=== PATIENT | male | born 1955 | race Caucasian/White ===

== ENCOUNTER 2024-11-28 15:23 | Day surgery (SDC) | payer OTHER ==
[~2024-11-28] VITALS: Ht 175.3 cm; Wt 75.9 kg
[2024-11-28] VITALS (9 sets, daily range): BP systolic 111–127; BP diastolic 66–77; PULSE 62–92; RESP 10–18; TEMP 96.8; O2SAT 96–100
[2024-11-28] MEDS ORDERED: bacitracin 15gm ointment TP ONE (15:31)
[2024-11-28] MEDS: famotidine 20mg tablet PO ONE (16:01)
[2024-11-28] MEDS ORDERED: cefazolin 2gm/D5W 100mL 100 ML IV ONE (16:05)
[2024-11-28] MEDS: ringers solution, lacted 1,000 ML IV SCH (16:20)
[2024-11-28] MEDS: ceFAZolin 2gm in dextrose, iso 50 ML IV ONE (16:21)
[2024-11-28] MEDS ORDERED: NO HOME MEDS (16:25)
[2024-11-28] MEDS ORDERED: sevoflurane 250ml liquid IH ONE (17:37)
[2024-11-28] MEDS ORDERED: midazolam 1 mg/ML 2ml injection ONE (17:44)
[2024-11-28] MEDS ORDERED: fentaNYL/PF 50MCG/1 ML 2ML syringe ONE (17:44)
[2024-11-28] MEDS ORDERED: meperidine/PF 25mg/ml syringe IV PRN ×2 (18:40)
[2024-11-28] MEDS ORDERED: morphine 4 MG/ML inj SYRINge IV PRN (18:40)
[2024-11-28] MEDS ORDERED: proCHLORperazine 10 MG/2 ml inj IV PRN (18:40)
[2024-11-28] MEDS ORDERED: ondansetron/PF 4mg/2ml inj IV PRN (18:40)
[2024-11-28] MEDS ORDERED: ringers solution, lacted 1,000 ML IV SCH (18:40)
[2024-11-28] MEDS ORDERED: propofol inj 20 ML IV ONE (19:15)
[2024-11-28] MEDS ORDERED: dexamethasone sod phosphate 4mg/ml inj. ONE (19:15)
[2024-11-28] MEDS ORDERED: glycopyrrolate 0.2mg/ml inj ONE (19:15)
[2024-11-28] MEDS ORDERED: neostigmine methylsulfate 1 MG/ML 10ml vial ONE (19:15)
[2024-11-28] MEDS ORDERED: rocuronium 10mg/ml inj IV ONE (19:15)
[2024-11-28] MEDS ORDERED: ondansetron/PF 4mg/2ml inj ONE (19:15)
[2024-11-28] MEDS: meperidine/PF 25mg/ml syringe IV PRN (19:56)
[2024-11-28] MEDS: ketorolac trometh 15mg/ml vial 15 MG/ML ML IV ONE (20:05)
[2024-11-28] MEDS: acetaminophen 1,000mg/100ml IV 100 ML IV SCH (20:06)
[2024-11-28] MEDS: morphine 2 MG/ML inj. syringe IV PRN (20:35)
== END 2024-11-28 20:49 | disposition home or self-care (01) ==
LOC: PAS 15:23
PROVIDERS: ATTEND Podiatrist Foot & Ankle Surgery
DX: S86.011A Strain of right Achilles tendon, initial encounter (principal); X58.XXXA Exposure to other specified factors, initial encounter; Y93.89 Activity, other specified; Y92.89 Other specified places as the place of occurrence of the external cause; Y99.8 Other external cause status; Z79.899 Other long term (current) drug therapy; G89.18 Other acute postprocedural pain; Z79.82 Long term (current) use of aspirin
CPT/HCPCS: 27650; 64445; 82948; A6222; C1713; J0131; J0690; J1100; J1885; J2003; J2175; J2250; J2270; J2405; J2704; J2710; J2795; J3010; J3490; J7030; J7120; Z7506; Z7508; Z7512; A4215; A4618; A6253; A6449; A7000